=== PATIENT | male | born 1995 | race Hispanic/Latino ===

== ENCOUNTER 2024-07-01 07:45 | Day surgery (SDC) | payer SELFPAY ==
[2024-06-27 09:35] VITALS: BMI 26.4
[2024-07-01] MEDS ORDERED: Sodium Chloride 0.9% 100 ML ONE (09:56)
[2024-07-01] MEDS ORDERED: CEFAZOLIN 2 GM VIAL ONE (09:56)
[2024-07-01] MEDS ORDERED: PROPOFOL 20 ML ONE (10:12)
[2024-07-01] MEDS ORDERED: fentaNYL 50 mcg/mL 1 mL Vial ONE (10:12)
[2024-07-01] MEDS ORDERED: Lidocaine 1% PF 5 ML VIAL ONE (10:19)
[2024-07-01] MEDS ORDERED: Bupivacaine 0.25% HCL 30 ML VIAL ONE (11:22)
[2024-07-01] MEDS ORDERED: Ketorolac Tromethamine 30 MG (1 mL) VIAL ONE (11:39)
[2024-07-01] MEDS ORDERED: HYDROcodone/Acetaminophen 5/325 mg Tablet ONE (12:31)
== END 2024-07-01 13:10 | disposition home or self-care (01) ==
LOC: SDC 07:45
PROVIDERS: ATTEND Orthopaedic Surgery
PROC: 0LX80ZZ Transfer Left Hand Tendon, Open Approach (ICD-10-PCS; principal; 2024-07-01)
DX: S56.522A Laceration of other extensor muscle, fascia and tendon at forearm level, left arm, initial encounter (principal); Z79.899 Other long term (current) drug therapy
CPT/HCPCS: J0665; J1885; J2704; J3010